=== PATIENT | female | born 1980 | race African-American/Black ===

== ENCOUNTER 2017-04-03 16:52 | Inpatient (IN) | payer OTHER ==
[~2017-04-03] VITALS: Ht 175.3 cm; Wt 99.8 kg
[2017-04-03] MEDS ORDERED: PREN-546 PO (17:36)
[2017-04-03] MEDS ORDERED: IRON65TA11 PO (17:36)
[2017-04-03] MEDS ORDERED: OXYTOCIN 20 UNITS/LR PREMIX 1,000 ML IV SCH (17:37)
[2017-04-03] MEDS ORDERED: IBUPROFEN 800 MG TAB PO PRN (17:40)
[2017-04-03] MEDS ORDERED: METHYLERGONOVINE 0.2 MG/ML AMP IM SCH (17:40)
[2017-04-03] MEDS ORDERED: CARBOPROST 250 MCG/ML AMP IM PRN (17:40)
[2017-04-03] MEDS ORDERED: NALBUPHINE 10 MG/ML AMP IVP PRN (17:40)
[2017-04-03] MEDS ORDERED: PROMETHAZINE 25 MG/ML VIAL IVP PRN (17:40)
[2017-04-03] MEDS ORDERED: LIDOCAINE 1% 500 MG/50 ML VIAL INJ SCH (17:50)
[2017-04-03 18:00] VITALS: BP 113/62
[2017-04-03] MEDS ORDERED: AMPICILLIN 2,000 MG in NACL 0.9% 100 ML IV SCH (18:00)
[2017-04-03 18:13] LABS: BASOPHILS # (AUTO) 0.1 K/uL (0.00-0.22); BASOPHILS % (AUTO) 1.4 % (0.0-2.0); EOSINOPHILS # (AUTO) 0.2 K/uL (0-0.4); EOSINOPHILS % (AUTO) 2.1 % (0.0-4.0); HEMATOCRIT 36.2 % (36-48); HEMOGLOBIN 11.3 g/dL (12.0-16.0); LYMPHOCYTES # (AUTO) 0.9 K/uL (2.5-16.5); LYMPHOCYTES % (AUTO) 12.1 % (20.5-51.1); MEAN CORPUSCULAR HEMOGLOBIN 26 pg (27-31); MEAN CORPUSCULAR HGB CONC 31 g/dL (33-37); MEAN CORPUSCULAR VOLUME 84 fL (80-94); MONOCYTES # (AUTO) 0.6 K/uL (0.8-1.0); MONOCYTES % (AUTO) 8.8 % (1.7-9.3); NEUTROPHILS # (AUTO) 5.4 K/uL (1.8-7.7); NEUTROPHILS % (AUTO) 75.6 % (42.2-75.2); PLATELET COUNT (AUTO) 188 K/uL (140-450); RED CELL DISTRIBUTION WIDTH 16.4 % (11.6-13.7); WHITE BLOOD COUNT (AUTO) 7.2 K/uL (4.8-10.8)
[2017-04-03 18:16] LABS: APPEARANCE,URINE SL CLOUDY (CLEAR); BILIRUBIN,URINE 1+ (NEGATIVE); BLOOD, URINE NEGATIVE (NEGATIVE); COLOR,URINE YELLOW (YELLOW); LEUKOCYTE ESTERASE ,URINE 1+ (NEGATIVE); NITRITE, URINE NEGATIVE (NEGATIVE); PROTEIN,URINE TRACE (NEGATIVE); UGLUCOSE NEGATIVE (NEGATIVE); UROBILINOGEN,URINE 0.2 EU/dL (0.2 - 1)
[2017-04-03] MEDS: LACTATED RINGERS 1,000 ML IV SCH (18:24)
[2017-04-03] MEDS ORDERED: AMPICILLIN 2,000 MG VIAL ONE (18:26)
[2017-04-03 18:31] LABS: BACTERIA,URINE 1+ /HPF (None Seen); ICTOTEST NEGATIVE (NEGATIVE); SQUAMOUS EPITHELIAL CELL,UR >10 (MANY) /LPF (0-3 (FEW)); WBC,URINE 6-15 (FEW) /HPF (0-5)
[2017-04-03] MEDS ORDERED: AMPICILLIN 1,000 MG VIAL IVP SCH ×2 (22:00)
[2017-04-03] MEDS ORDERED: AMPICILLIN 1,000 MG VIAL ONE (22:16)
[2017-04-03] MEDS: AMPICILLIN 1,000 MG in NACL 0.9% 50 ML IV SCH (22:39)
[2017-04-03] MEDS ORDERED: OXYTOCIN 10 UNITS/ML VIAL IM SCH (23:00)
[2017-04-04] MEDS: LACTATED RINGERS 1,000 ML IV SCH ×3 (00:09→06:58)
[2017-04-04] MEDS ORDERED: BUPIVACAINE 0.125%/NS PREMIX 250 ML ONE (00:16)
[2017-04-04] MEDS ORDERED: OXYTOCIN 20 UNITS/LR PREMIX 1,000 ML IV ONE (01:20)
[2017-04-04] MEDS: AMPICILLIN 1,000 MG in NACL 0.9% 50 ML IV SCH ×3 (03:06→11:19)
[2017-04-04] MEDS ORDERED: AMPICILLIN 1,000 MG VIAL ONE ×3 (03:07→11:19)
--- NOTE | 2017-04-04 09:04 | NUR ---
PATIENT HAS BEEN SCREENED AND CATEGORIZED LOW NUTRITION RISK. PATIENT WILL BE SEEN WITHIN 7 DAYS OF ADMISSION. 04/10/[address]
[2017-04-04] MEDS ORDERED: OXYTOCIN 10 UNITS/ML VIAL ONE (11:51)
[2017-04-04] MEDS ORDERED: BENZOCAINE/MENTHOL 20%-0.5% 60 GM CAN TP PRN (12:30)
[2017-04-04] MEDS ORDERED: MEASLES, MUMPS, AND RUBELLA 1 VIAL SQVAC PRN (12:30)
[2017-04-04] MEDS ORDERED: METHYLERGONOVINE 0.2 MG/ML AMP IM PRN (12:30)
[2017-04-04] MEDS ORDERED: OXYTOCIN 10 UNITS/ML VIAL IM PRN (12:30)
[2017-04-04] MEDS ORDERED: WITCH HAZEL 40 PAD PACKAGE TP PRN (12:30)
[2017-04-04] MEDS ORDERED: TEMAZEPAM 15 MG CAP PO PRN (12:30)
[2017-04-04] MEDS ORDERED: METHYLERGONOVINE 0.2 MG TAB PO PRN (12:30)
[2017-04-04] MEDS ORDERED: SODIUM PHOSPHATE 118 ML ENEM RC PRN (12:30)
[2017-04-04] MEDS: oxyCODONE/APAP 5/325 MG 1 TAB TAB PO PRN ×2 (13:43→22:40)
[2017-04-04] MEDS ORDERED: oxyCODONE/APAP 5/325 MG 1 TAB TAB ONE (13:48)
[2017-04-04] MEDS ORDERED: DOCUSATE SOD/SENNA 50/8.6 MG 1 TAB PO SCH (21:00)
[2017-04-05 05:39] LABS: HEMATOCRIT 33.3 % (36-48); HEMOGLOBIN 10.5 g/dL (12.0-16.0)
[2017-04-05] MEDS: oxyCODONE/APAP 5/325 MG 1 TAB TAB PO PRN (09:54)
[2017-04-05] MEDS: HYDROcodone/APAP 5/325 MG 1 TAB TAB PO PRN (20:07)
[2017-04-05] MEDS ORDERED: DOCUSATE SOD/SENNA 50/8.6 MG 1 TAB PO SCH (21:00)
[2017-04-06] MEDS: HYDROcodone/APAP 5/325 MG 1 TAB TAB PO PRN (08:19)
== END 2017-04-06 13:55 | disposition home or self-care (01) | DRG 560 ==
LOC: MLD 16:52 → OBSVTOIN 16:52 → MFCC 04-04 15:55
PROVIDERS: ADMIT Obstetrics & Gynecology; ATTEND Obstetrics & Gynecology
PROC: 10E0XZZ Delivery of Products of Conception, External Approach (ICD-10-PCS; principal; 2017-04-04)
PROC: 10907ZC Drainage of Amniotic Fluid, Therapeutic from Products of Conception, Via Natural or Artificial Opening (ICD-10-PCS; 2017-04-04)
PROC: 0UQGXZZ Repair Vagina, External Approach (ICD-10-PCS; 2017-04-04)
PROC: 00HU33Z Insertion of Infusion Device into Spinal Canal, Percutaneous Approach (ICD-10-PCS; 2017-04-04)
PROC: 3E0R3CZ (ICD-10-PCS; 2017-04-04)
PROC: 3E0234Z Introduction of Serum, Toxoid and Vaccine into Muscle, Percutaneous Approach (ICD-10-PCS; 2017-04-05)
DX: O99.824 Streptococcus B carrier state complicating childbirth (principal); Z91.040 Latex allergy status; O71.4 Obstetric high vaginal laceration alone; Z37.0 Single live birth; Z3A.39 39 weeks gestation of pregnancy; Z87.891 Personal history of nicotine dependence; Z80.3 Family history of malignant neoplasm of breast; Z82.49 Family history of ischemic heart disease and other diseases of the circulatory system; Z80.41 Family history of malignant neoplasm of ovary; Z82.0 Family history of epilepsy and other diseases of the nervous system
CPT/HCPCS: 36415; 51702; 59409; 76815; 81001; 85018; 85025; 86592; 86886; 86900; 86901; 87086; 90715; J0290; J2590; J3490; J7120; Q0092